=== PATIENT | female | born 1985 | race Hispanic/Latino ===

== ENCOUNTER 2023-06-25 02:25 | Inpatient (IN) | payer OTHER ==
[~2023-06-25] VITALS: Ht 154.9 cm; Wt 74.8 kg
[2023-06-25 02:27] VITALS: BP 157/127; PULSE 100; RESP 20
[2023-06-25 04:15] LABS: BASOPHILS % (AUTO) 0.8 % (0.0-5.0); EOSINOPHILS # (AUTO) 0.29 K/uL (0.00-0.70); EOSINOPHILS % (AUTO) 2.3 % (0.0-8.0); HEMATOCRIT 33.8 % (36-48); LYMPHOCYTES # (AUTO) 2.1 K/uL (1.0-4.8); LYMPHOCYTES % (AUTO) 16.4 % (21.0-51.0); MEAN CORPUSCULAR HEMOGLOBIN 25.9 pg (27.0-33.0); MEAN CORPUSCULAR VOLUME 81.1 fL (79-99); MONOCYTES # (AUTO) 0.7 K/uL (0.1-1.0); MONOCYTES % (AUTO) 5.9 % (3.0-13.0); NEUTROPHILS # (AUTO) 9.2 K/uL (1.8-7.7); NEUTROPHILS % (AUTO) 73.8 % (40.0-77.0); PLATELET COUNT (AUTO) 504 K/uL (130-400); RED BLOOD CELL COUNT(AUTO) 4.17 MIL/uL (4.00-5.50); RED CELL DISTRIBUTION WIDTH 18.6 % (11.0-15.5); WHITE BLOOD COUNT (AUTO) 12.5 K/uL (4.8-10.8)
[2023-06-25 04:30] LABS: CREATININE 0.8 mg/dL (0.5-1.5); POTASSIUM 3.5 mmol/L (3.5-5.1)
[2023-06-25] MEDS ORDERED: ONDANSETRON 4MG INJ IVP PRN (04:30)
[2023-06-25] MEDS ORDERED: MEPERIDINE-PF 50 MG/ML SYG IVP PRN (04:30)
[2023-06-25] MEDS ORDERED: MAGNESIUM 4GM PREMIX 100ML 100 ML IV SCH (04:30)
[2023-06-25] MEDS ORDERED: MISOPROSTOL 25 MCG TAB VG PRN (04:30)
[2023-06-25] MEDS ORDERED: CALCIUM GLUC 1GM/10ML VIAL IV PRN (04:30)
[2023-06-25] MEDS ORDERED: PROMETHAZINE HCL 25 MG/ML 1ML AMPULE IM PRN (04:30)
[2023-06-25] MEDS ORDERED: LACTATED RINGERS 1000ML 1,000 ML IV PRN ×2 (04:30)
[2023-06-25 04:37] LABS: ALBUMIN 3.5 g/dL (3.5-5.0); BILIRUBIN,TOTAL 0.1 mg/dL (0.2-1.0); URIC ACID 5.1 mg/dL (2.6-7.2)
[2023-06-25] MEDS ORDERED: MAGNESIUM SULFATE 40GM/1000ML 1,000 ML IV ONE (04:45)
[2023-06-25 04:47] LABS: INR < 0.93 (0.85-1.15)
[2023-06-25 04:48] LABS: PARTIAL THROMBOPLASTIN TIME 26.5 SEC (26.3-35.5)
[2023-06-25 04:54] LABS: FIBRINOGEN 602 mg/dL (180-350)
[2023-06-25] MEDS ORDERED: PHARMACY COMMUNICATION MISC SCH (05:00)
[2023-06-25 05:14] LABS: AMPHET/METH SCREEN,URINE NEGATIVE (NEGATIVE); BARBITURATE SCREEN, URINE NEGATIVE (NEGATIVE); BENZODIAZEPINES SCREEN,URINE NEGATIVE (NEGATIVE); CANNABINOID SCREEN,URINE NEGATIVE (NEGATIVE); COCAINE SCREEN,URINE NEGATIVE (NEGATIVE); OPIATE SCREEN,URINE NEGATIVE (NEGATIVE); PHENCYCLIDINE SCREEN,URINE NEGATIVE (NEGATIVE)
[2023-06-25 05:18] LABS: HEMOGLOBIN A1C 6.1 % (4.0-6.0)
[2023-06-25] MEDS ORDERED: LABETALOL 20MG VIAL IV PRN (05:30)
[2023-06-25] MEDS ORDERED: CEFAZOLIN SODIUM 2 GM VIAL ONE (05:39)
[2023-06-25 05:42] LABS: ALANINE AMINOTRANSFERASE 27 U/L (12-78); ALBUMIN 3.5 g/dL (3.5-5.0); ASPARTATE AMINOTRANSFERASE 23 U/L (10-37); BILIRUBIN,DIRECT < 0.1 mg/dL (0.0-0.3); BILIRUBIN,TOTAL 0.1 mg/dL (0.2-1.0); CREATININE 0.8 mg/dL (0.5-1.5); GLOMERULAR FILTR. RATE CALC 97 mL/min (>90); TOTAL PROTEIN, SERUM 8.2 g/dL (6.0-8.3); UREA NITROGEN, BLOOD 16 mg/dL (7-18)
[2023-06-25] MEDS: OXYTOCIN-LR 30 UNITS/500ML 500 ML IV SCH ×2 (05:50→10:07)
[2023-06-25] MEDS ORDERED: CEFAZOLIN SODIUM 1 GM VIAL IVPB ONE (06:00)
[2023-06-25 07:08] LABS: HIV 1&2 ANTIBODY Non-Reactive (Negative); HIV-1 p24 Antigen Non-Reactive (Negative)
[2023-06-25] MEDS ORDERED: ACETAMINOPHEN WITH CODEINE 1 TAB TAB PO PRN (10:00)
[2023-06-25] MEDS ORDERED: IBUPROFEN 600 MG TABLET PO PRN (10:00)
[2023-06-25] MEDS ORDERED: WITCH HAZEL 1 PAD TP PRN (10:00)
[2023-06-25] MEDS ORDERED: BENZOCAINE/LANOLIN/ALOE VERA 60 ML AEROSOL TP PRN (10:00)
[2023-06-25] MEDS ORDERED: ACETAMINOPHEN 325 MG TAB PO PRN (10:00)
[2023-06-25] MEDS ORDERED: LANOLIN 30GM OINTMENT TP PRN (10:00)
[2023-06-25] MEDS ORDERED: IBUPROFEN 600 MG TABLET ONE (10:04)
[2023-06-25 14:52] LABS: RAPID PLASMA REAGIN NONREACTIVE (NONREACTIVE)
[2023-06-25] MEDS ORDERED: DOCUSATE SODIUM 100 MG CAP PO SCH (21:00)
[2023-06-26] MEDS ORDERED: MAGNESIUM 4GM PREMIX 100ML 100 ML IV ONE (04:30)
== END 2023-06-25 16:00 | disposition home or self-care (01) | DRG 807 ==
LOC: EDH 02:25 → OBSVTOIN 02:26 → LDH 02:26
PROVIDERS: ADMIT Obstetrics & Gynecology; ATTEND Obstetrics & Gynecology
PROC: 10E0XZZ Delivery of Products of Conception, External Approach (ICD-10-PCS; principal; 2023-06-25)
DX: O36.4XX0 Maternal care for intrauterine death, not applicable or unspecified (principal); Z37.1 Single stillbirth; O03.9 Complete or unspecified spontaneous abortion without complication; Z3A.18 18 weeks gestation of pregnancy
CPT/HCPCS: 36415; 76805; 80053; 80076; 80305; 82565; 83036; 84520; 84550; 85025; 85027; 85378; 85384; 85610; 85730; 86592; 86701; 86850; 86900; 86901; 87340; 87390; A4314; G0378; J3475; J3490; A4510; A4600; J0690